=== PATIENT | female | born 1980 | race African-American/Black ===

== ENCOUNTER 2017-04-04 10:30 | Emergency (ER) | payer BC ==
[2017-04-04 10:35] VITALS: BP 126/96; BMI 29.4
--- NOTE | 2017-04-04 11:14 | DR.GENAD ---
HPI - PCP Primary Care Physician: [facility] - Complaint/Symptoms Chief Complaint Doctors Comments: Patiemt admits to ear pain and sore throat and not feeling good. Denies vomiting. Chief Complaint:: "Since about Wednesday I have been having a bad sore throat and my ears have been hurting. My glads just feel really swollen. My throat also feels swollen." - Source History Provided: Patient - Mode of Arrival Mode of Arrival: Ambulatory - Timing Onset of Chief Complaint: 04/02/17 PMH - PMH Past Medical History: No Past Surgical History: Yes Surgical History: - Family History History of Family Medical Conditions: Yes Family Medical History: Diabetes Mellitus - Social History Does patient currently use any type of tobacco product: No Have you used tobacco products in the last 12 months: No Type of Tobacco Use: None Does any household member use tobacco: No Alcohol Use: None Do you use any recreational Drugs:: No Lives With: Family Lives Where: Home - infectious screening In the last 2 months have you had wt loss of >10#?: NO Have you had fever, night sweats or hemotysis?: No Have you traveled outside the country in the last 6 months?: No Isolation: Standard ROS - Review of Systems Eyes: No Symptoms Reported ENTM: No Symptoms Reported Respiratoy: No Symptoms Reported Cardiovascular: No Symptoms Reported Gastrointestinal/Abdominal: No Symptoms Reported Genitourinary: No Symptoms Reported Neurological: See HPI Musculoskeletal: No Symptoms Reported Integumentary: No Symptoms Reported Hematologic/Lymphatic: No Symptoms Reported Endocrine: No Symptoms Reported Psychiatric: No Symptoms Reported All Other Systems: Reviewed and Negative PE - Vital Signs Vitals: Temperature 98.5 F Pulse Rate 82 Respiratory Rate 18 Blood Pressure 126/96 O2 Sat by Pulse Oximetry 98 - General General Appearance: Alert, In No Apparent Distress - Head Head Exam: Normal Inspection, Atraumatic - Eyes Eye exam: Normal Appearance, PERRL, EOMI - ENT ENT Exam: Normal Exam External Ear Exam: Normal External Inspection TM/Canal Exam: Bilateral Erythema Nose Exam: Normal Nose Exam Mouth Exam: Normal Inspection Throat Exam: Normal Inspection - Neck Neck Exam: Normal Inspection - Chest Chest Inspection: Normal Inspection - Respiratory Respiratory Exam: Normal Lung Sounds Bilat Respiratory Exam: Bilateral Clear to Auscultation - Cardiovascular Cardiovascular Exam: Regular Rate, Normal Rhythm - Abdominal Exam Abdominal Exam: Normal Inspection Abdominal Tenderness: negative: RUQ, RLQ, LUQ, LLQ, Epigastrium, Suprapubic, Diffuse, Mild, Moderate, Severe, Other - Extremities Extremities Exam: Normal Inspection, Full ROM - Back Back Exam: Normal Inspection - Neurologic Neurological Exam: Alert, Oriented X3, CN II-XII Intact - Psychiatric Psychiatric Exam: Normal Affect - Skin Skin Exam: Warm, Dry ROR - Labs Reviewed Laboratory Results Reviewed?: Yes (positive strep) Laboratory: Streptococcus Screen Positive (NEGATIVE) A 04/04/17 11:08 - Diagnosis Discharge Problem: Strep pharyngitis, Otalgia of both ears - Discharge Plan Condition: Stable - Follow ups/Referrals Follow ups/Referrals: STEWART HAMPTON [Primary Care Provider] - 3 days - Instructions
== END 2017-04-04 11:45 | disposition home or self-care (01) ==
LOC: ER 11:01
DX: H92.03 Otalgia, bilateral (principal); J02.0 Streptococcal pharyngitis
CPT/HCPCS: 87880; 99281; 99282